=== PATIENT | female | born 2005 | race Caucasian/White ===

== ENCOUNTER 2023-07-29 08:52 | Emergency (ER) | payer BC, SELFPAY ==
[2023-07-29 09:18] VITALS: BP 115/83; PULSE 97; RESP 18; TEMP 37.3; O2SAT 100; BMI 29.2
--- NOTE | 2023-07-29 09:26 | CRLHL7_ITS ---
For Patients: As a result of the Cures Act, medical imaging exams and procedure reports are released immediately into your electronic medical record. You may view this report before your referring provider. If you have questions, please contact your health care provider. Indication: Trauma. Swelling. Technique: Three views Comparison: None Findings: Mild anterior periarticular soft tissue swelling. No fracture or dislocation. Impression: Mild anterior periarticular soft tissue swelling. Dictated by Alfred Carlson MD @ 07/29/2023 10:26:40 AM (Electronically Signed)
--- NOTE | 2023-07-29 10:42 | ED_ITS ---
HPI - General Adult General Time Seen by Provider: 10:42 Date Seen: 07/29/23 Chief complaint: Extremity Pain/Injury, Lower Stated complaint: left foot injury Time Seen by Provider: 07/29/23 10:41 History of Present Illness HPI narrative: This is a pleasant generally healthy 17-year-old female who presents to the ER today with her boyfriend for evaluation of a left ankle injury. She was letting out her dog this morning when she accidentally slipped and fell. She had an inversion/twisting injury to her left ankle. She has had pain in left ankle and has developed swelling and bruising there. She has been able to bear weight, with discomfort. Because of the amount of pain and swelling she came to the ER see for ankle was broken. No pain in her heel. No pain in her calf for in her proximal tibia or fibula. No other injury in the fall. Related Data Home Medications Medication Instructions Recorded Confirmed sertraline 50 mg tablet 50 mg PO DAILY 07/29/23 07/29/23 Allergies Allergy/AdvReac Type Severity Reaction Status Date / Time No Known Drug Allergies Allergy Verified 07/29/23 09:18 Exam Narrative: Exam Narrative: Constitutional: Appears well-developed and well-nourished. Alert. Conversant. Non toxic. HENT: Head: Atraumatic. Nose: Nose normal. Mouth/Throat: Oral mucosa is clear and moist. no trismus. Pharynx normal. Tonsils symmetric. No tonsillar enlargement, erythema, or exudate. Eyes: Conjunctivae normal. EOM normal. Pupils equal, round, and reactive to light. No scleral icterus. Neck: Normal range of motion. Neck supple. No tracheal deviation present. Cardiovascular: Normal rate, regular rhythm. Symmetric posterior tibial and dorsalis pedis artery pulses . Normal brisk distal capillary refill. Pulmonary/Chest: Effort normal. No stridor. No respiratory distress. Musculoskeletal: RUE: Normal range of motion. No tenderness. No deformity LUE: Normal range of motion. No tenderness. No deformity RLE: Normal range of motion. No edema. No tenderness. No deformity LLE: Normal range of motion in her hip, knee. Ankle range of motion limited by pain but she has some limited flexion extension. Knee: Normal inspection. No tenderness over the proximal tibia or fibula. Tibial spine nontender. Calf and gastrocnemius nontender. Ankle: There is swelling and ecchymosis over the anterolateral ankle just anterior to the bony malleolus. Mild tenderness over the anterior malleolus. No crepitus. No deformity. Medial malleolus nontender. Foot: There is swelling and ecchymosis just anterior to the left ankle lateral malleolus over the left midfoot. No tenderness of the calcaneus, base of the 5th metatarsal, midportion midfoot, arch, and no tenderness over the toes/forefoot.. Neurological: Alert and oriented to person, place, and time. Normal strength. CN II-VII intact. No sensory deficit. GCS eye subscore is 4. GCS verbal subscore is 5. GCS motor subscore is 6. Normal coordination Skin: Skin is warm and dry. No rash noted. No pallor. Normal capillary refill. Psychiatric: Normal mood. Normal affect. Const: Vital Signs, click to edit/add: Vital Signs - 24 hr 07/29/23 09:18 Temperature 99.2 F Pulse Rate [Right Pulse Oximeter] 97 Respiratory Rate 18 Blood Pressure [Ri ght Upper Arm] 115/83 Pulse Oximetry 100 Oxygen Delivery Me thod Room Air Course Vital Signs Vital signs: Initial Vital Signs Temperature 99.2 F 07/29/23 09:18 Temperature Source Temporal Artery Scan 07/29/23 09:18 Pulse Rate 97 07/29/23 09:18 Respiratory Rate 18 07/29/23 09:18 Blood Pressure 115/83 07/29/23 09:18 Blood Pressure Mean 93 07/29/23 09:18 Blood Pressure Position Sitting 07/29/23 09:18 Pulse Oximetry 100 07/29/23 09:18 Oxygen Delivery Method Room Air 07/29/23 09:18 Vital Signs Temperature 99.2 F 07/29/23 09:18 Pulse Rate 97 07/29/23 09:18 Respiratory Rate 18 07/29/23 09:18 Blood Pressure 115/83 07/29/23 09:18 Pulse Oximetry 100 07/29/23 09:18 Oxygen Delivery Method Room Air 07/29/23 09:18 Temperature 99.2 F 07/29/23 09:18 Pulse Rate 97 07/29/23 09:18 Respiratory Rate 18 07/29/23 09:18 Blood Pressure 115/83 07/29/23 09:18 Pulse Oximetry 100 07/29/23 09:18 Oxygen Delivery Method Room Air 07/29/23 09:18 Medical Decision Making MDM Narrative Medical decision making narrative: This patient presents for evaluation of left ankle pain. Signs and symptoms are consistent with an ankle sprain. There are no signs of fracture on radiograph. The patients neurovascular status is normal. Knee exam is normal. I don't think this is a Maisonneuve injury or a intraosseous ligament injury based on the location of tenderness. A head to toe trauma exam is otherwise negative; the likelihood of other serious sequelae of trauma (spine, head, chest, abdomen, other extremities, pelvis) is low. Plan is for protected weightbearing, RICE treatment with ice 15-20 minutes every 3 hours, and an bracing. Patient will advance weightbearing and follow-up in 2- 4 days. They will begin gentle ROM exercises. Precautions for return reviewed and questions answered. Imaging Data XR ankle: Attestation: I have reviewed the pertinent imaging results. Radiologist's impression: Impression: Mild anterior periarticular soft tissue swelling. Discharge Plan Discharge Clinical Impression: Ankle sprain and strain Patient Disposition: Home, Self-Care Condition: Stable Instructions: Ankle Sprain (ED) Additional Instructions: As we discussed, your x-rays look good today. Nothing broken. We suspect this is probably an injury to the ligaments on the outside of your left ankle. Please try to keep her ankle elevated when your sitting down to reduce swelling. Use ice for 20 minutes every 3-4 hours to reduce swelling. Use Tylenol or ibuprofen if needed for pain. Wear this splint on your ankle when her up and around for the next few days. If her ankle is not dramatically improved within 7-10 days, please recheck with orthopedics. Call the [facility] at [phone] to make an appointment. If you have any concerns especially worsening pain, increasing swelling, numbness or tingling in your foot, or any other problems, come back to the ER right away to be rechecked. Prescriptions: No Action sertraline 50 mg tablet 50 mg PO DAILY Follow Up/Referrals: Kar Byrne MD [Primary Care Provider] - Stand Alone Forms: ICEdot Info Instructions
== END 2023-07-29 11:27 | disposition home or self-care (01) ==
LOC: ED 11:18
PROVIDERS: Emergency Provider Emergency Medicine; PCP Pediatrics
DX: S93.402A Sprain of unspecified ligament of left ankle, initial encounter (principal); W01.0XXA Fall on same level from slipping, tripping and stumbling without subsequent striking against object, initial encounter
CPT/HCPCS: 29515; 73610; 99283

== ENCOUNTER 2025-04-07 18:18 | Outpatient (CLI) | payer SELFPAY ==
[2025-04-14 14:06] LABS: Pap Test Reviewed by Path Done
== END 2025-04-07 18:19 | disposition home or self-care (01) ==
LOC: NFLDREF 18:18
PROVIDERS: PCP Registered Nurse; Visit Provider Registered Nurse
DX: Z12.4 Encounter for screening for malignant neoplasm of cervix (principal)
CPT/HCPCS: 87624; 87625; 88141; 88142

== ENCOUNTER 2025-08-19 02:23 | Emergency (ER) | payer OTHER, SELFPAY ==
--- OUTSIDE RECORDS SUMMARY | 2025-08-19 02:25 | XMS_ITS | Clinical Summary ---
Author Organization [facility] Address [address] [place] [id number] Care Team Providers Care Filter Washer Name Role Phone Elsewhere, Pcp Primary Care Provider Unavailabl e Source Comments Patient records contain information from all sites at [facility]. For routine questions regarding patient records, call [phone] during business hours, M-F 8:00 AM - 5:00 PM Central Time. Record requests for emergency care only can be directed to [phone] at any time.[facility] Allergies No known active allergies Medications benzonatate (Tessalon) 200 mg capsule Take 1 capsule (200 mg total) by mouth 3 (three) times a day as needed for cough. 20 capsule 10/28/2024 Active Active Problems No known active problems Immunizations Immunization Administration Dates Next Due 9vHPV 06/01/2021,06/06/2018 DTaP / Hep B / IPV (Pediarix) 04/14/2004, 004,2003 DTaP / Hib 01/13/2005 DTaP-IPV 05/21/2009 HepA Pediatric/Adolescent 05/21/2009,03/19/2008 Hib (PRP-OMP) (PedvaxHIB) 04/14/2004 Hib (PRP-T) (ACTHIB, HIBERIX) 02/16/2004, 004 Influenza, Unspecified 08/19/2004,07/18/2004 MCV4 (Menveo) 06/01/2021,04/27/2016 MMR 05/21/2009,10/25/2004 PCV7 (discontinued) 01/13/2005,07/18/2004,2003,2003 Tdap 04/27/2016 LARS 05/21/2009,10/25/2004 Social History Tobacco Use Types Packs/Day Years Used Date Smoking Tobacco: Never Smokeless Tobacco: Never Tobacco Cessation:Counseling Given: Yes Humiliation, Afraid, Rape, and Kick questionnair e Answer Date Recorded Within the last year, have y ou been afraid of your partner or ex-partner? No 01/12/2022 Within the last year, have y ou been humiliated or emotionally abused in other ways by your partner or ex-partner? No Within the last year, have y ou been kicked, hit, slapped, or otherwise physically hurt by your partner or ex-partner? No 01/12/2022 Within the last year, have y ou been raped or forced to have any kind of sexual activity by your partner or ex-partner? No 01/12/2022 Hunger Vital Sign Answer Date Recorded Within the past 12 months, y ou worried that your food would run out before you got the money to buy more. Never true 01/13/20 Within the past 12 months, t he food you bought just didn't last and you didn't have money to get more. Never true 01/12/2022 PRAPARE - Transportation Answer Date Re corded In the past 12 months, has l ack of transportation kept you from medical appointments or from getting medications? No 12/15 In the past 12 months, has l ack of transportation kept you from meetings, work, or from getting things needed for daily living? No 01/12/2022 Housing Stability Vital Sign Answer Mj e Recorded In the last 12 months, was t here a time when you were not able to pay the mortgage or rent on time? Patient refused 01/13/20 In the last 12 months, how many places have you lived? 1 01/12/2022 In the last 12 months, was t here a time when you did not have a steady place to sleep or slept in a usp (including now)? No 01/12/2022 Comments Unknown Sex and Gender Information Value Date Recorded Sex Assigned at Female 01/12/2022 7:26 PM CDT Legal Sex Female 7:10 AM DIRECTOR OF EMERGENCY NURSING Gender Identity Female 01/12/2022 7:26 PM CDT Sexual Orientation Straight 01/12/2022 7: 26 PM CDT Last Filed Vital Signs Vital Sign Reading Time Taken Comments Blood Pressure 120/76 10/28/2024 11:13 AM DIRECTOR OF EMERGENCY NURSING Pulse 120 10/28/2024 11:17 AM DIRECTOR OF EMERGENCY NURSING Temperature 37.6 C (99.7 F) 10/28/2024 11:13 AM DIRECTOR OF EMERGENCY NURSING Respiratory Rate 18 10/28/2024 11:13 AM DIRECTOR OF EMERGENCY NURSING Oxygen Saturation 95% 10/28/2024 11:13 AM DIRECTOR OF EMERGENCY NURSING Inhaled Oxygen Concentration - - Weight 83.2 kg (183 lb 6.4 oz) 10/28/2024 11:11 AM DIRECTOR OF EMERGENCY NURSING Height 162.6 cm (5' 4) 10/28/2024 11:11 AM DIRECTOR OF EMERGENCY NURSING Body Mass Index 31.48 10/28/2024 11:11 AM DIRECTOR OF EMERGENCY NURSING Plan of Treatment Health Maintenance Due Date Last Done Comments Cervical/Vaginal Cancer Screening 2003 Chlamydia and Gonorrhea Screening 2003 HIV Screening 2003 Hearing Screening during Well Child Visit 2003 Hepatitis C Screening 2003 TB Screening during Well Child Visit 2003 1 week Well Child Check-Up 2003 1 month Well Child Check-Up 2003 2 month Well Child Check-Up 2003 4 month Well Child Check-Up 01/14/2004 9 month Well Child Check-Up 06/15/2004 15 month Well Child Check-Up 12/13/2004 18 month Well Child Check-Up 03/15/2005 2 year Well Child Check-Up 09/14/2005 30 month Well Child Check-Up 03/15/2006 3 year Well Child Check-Up 09/14/2006 Well Child Check-Up Completed in Past Year 09/14/2006 5 year Well Child Check-Up 09/14/2008 6 year Well Child Check-Up 09/14/2009 7 year Well Child Check-Up 09/14/2010 8 year Well Child Check-Up 09/14/2011 10 year Well Child Check-Up 09/14/2013 12 year Well Child Check-Up 09/14/2015 13 year Well Child Check-Up 09/14/2016 14 year Well Child Check-Up 09/14/2017 15 year Well Child Check-Up 09/14/2018 17 year Well Child Check-Up 09/14/2020 18 year Well Child Check-Up 09/14/2021 19 year Well Child Check-Up 09/14/2022 20 year Well Child Check-Up 09/14/2023 21 year Well Child Check-Up 09/14/2024 Well Child Check-Up ([facility]) 09/14/2024 Depression Screening (Annual PHQ-2) 2024 COVID-19 Vaccine ( season) 2025 07/04/2022, 06/13/2022 Influenza Vaccine (#1) 2025 , 07/26/2022, 08/19/2004, Additional history exists DTaP,Tdap,and Td Vaccines (8 - Td or Tdap) 12/12/2032 12/12/2022, 04/27/2016, 05/21/2009, Additional history exists Hepatitis B Vaccines Completed 04/14/2004, 02/16/2004, 2003 Pneumococcal vaccine (0-49 years) Aged Out 01/13/2005, 07/18/2004, 02/16/2004, Additional history exists No longer eligible based on patient's age to complete this topic IPV Vaccines Completed 05/21/2009, 10/2003, 02/16/2004, Additional history exists Varicella Vaccines Completed 05/21/2009, 10/25/2004 HPV Vaccines Completed 06/01/2021, 06/06/2018 Meningococcal Vaccine Completed 06/01/2021, 016 Insurance [facility] Care Teams Filter Washer Relationship Specialty Start Date End Date Elsewhere, Pcp PCP - General Internal Medicine 01/16/22
--- OUTSIDE RECORDS SUMMARY | 2025-08-19 02:25 | XMS_ITS | Clinical Summary ---
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 45 g Active sertraline (ZOLOFT) 25 mg tablet Take 25 mg by mouth once daily. Active Active Problems Problem Noted Date Diagnosed Date Vaginal delivery 03/04/2023 care and examination of lactating mot her 03/04/2023 Supervision of normal first teen in third trimester 03/03/2023 Anxiety during 03/03/2023 Immunizations Immunization Administration Dates Next Due COVID-19 vaccine (VeducaBio NTech 30mcg/0.3mL) PF, MDV 07/04/2022,06/13/2022 DTaP-HIB (TriHIBIT) 01/13/2005 [id number] (Pediarix) 04/14/2004,02/16/2004,0 2003 DTaP-IPV (Kinrix) 05/21/2009 HIB PRP-OMP (PedvaxHIB) 04/14/2004 HIB PRP-T (ActHIB,Hiberix) 02/16/2004,2003 HPV 9 (Gardasil 9) 06/01/2021,06/06/2018 Hepatitis A (Peds) 05/21/2009,03/19/2008 Influenza Virus, Unspecified 08/19/2004, 08/19/2004,07/18/2004,07/18 Influenza, IIV4 07/26/2022 MENINGOCOCCAL VACCINE 2 VIAL [id number] (MENVEO) 06/01/2021,04/27/2016 MMR 05/21/2009,10/25/2004 Pneumococcal conj 7-Valent (Prevnar 7) 0 01/13/2005,07/18/2004,02/16/2004,12/16 Tdap 12/12/2022,04/27/2016 Varicella Vaccine 05/21/2009,10/25/2004 Social History Tobacco Use Types Packs/Day Years Used Date Smoking Tobacco: Never Smokeless Tobacco: Never Tobacco Cessation:Counseling Given: Not Answered Alcohol Use Standard Drinks/Week Comments Never 0 (1 standard drink = 0.6 oz pur e alcohol) Social Connections Answer Date Recorded Frequency of Communication with Friends and Fami ly Not on file 03/03/2023 Comments No Sex and Gender Information Value Date Recorded Sex Assigned at Not on file Legal Sex Female 6:31 AM MANAGER TRAINEE Gender Identity Not on file Sexual Orientation Not on file Obstetrics History Para Term AB IAB SAB Ectopic Multiple Livin g Live Births 1 1 1 0 1 1 Date Outcome GA Total Labor Labor/2nd/3rd Weight Sex Type Anes PTL Keri A1 A5 Name Clin 2022 Term 40w 3d 11h 58m 11h 14m/0h 41m/0h 03m 3.69 kg (8 lb 2.2 oz) M Vag-S pont Epidur al Livin g 9 9 [id number] Potter,BB LINA orona, Alfred Stephenson MD Complications:None Delivery Location:Hospital ( [facility]) Last Filed Vital Signs Vital Sign Reading Time Taken Comments Blood Pressure 115/64 03/05/2023 8:35 AM CDT Pulse 78 03/05/2023 8:35 AM CDT Temperature 36.6 C (97.9 F) 03/05/2023 8:35 AM CDT Respiratory Rate 16 03/05/2023 8:35 AM CDT Oxygen Saturation 98% 03/05/2023 8:35 AM CDT Inhaled Oxygen Concentration - - Weight 86.2 kg (190 lb) 03/03/2023 6:00 PM CDT Height 162.6 cm (5' 4) 03/03/2023 6:00 PM CDT Body Mass Index 32.61 03/03/2023 6:00 PM CDT Plan of Treatment Health Maintenance Due Date Last Done Comments Depression screening for age 12+ 2015 Chlamydia for age 16-24 2019 BMI (ht and wt on same day) for age 18+ 2021 Hepatitis C screening for age 18-79 2021 Pap test for age 21-65 2024 Influenza Vaccine (#1) 2025 , 08/19/2004, 08/19/2004, Additional history exists Tetanus booster 12/12/2032 12/12/2022, 04/27/2016 RSV vaccine for adults or (1 - 1-dose 75+ series) 2078 Hepatitis B series for 19+ Completed 04/14, 02/16/2004, 2003 Pneumococcal series for age 6-49 Aged Out 01/13/2005, 07/18/2004, 02/16/2004, Additional history exists No longer eligible based on patient's age to complete this topic HPV series for age 9-45 Completed 06/01/2021, 06/06 Meningococcal series for age 11-21 Completed 06/01/2021, 04/27/2016 HIV for age 15-65 Completed 07/26/2022 Procedures Procedure Name Priority Date/Time Associated Diagnosis Comments HIV EXTERNAL Routine 07/26/2022 from Last 3 Months or Most Recently Relevant to Health Maintenance Results * HIV EXTERNAL (07/26/2022) EXTERNAL HIV Negative [facility] Blood BLOOD SPECIMEN / Unknown us Dee Campos MD LABORATORY Final Res ult [facility] [address] [place], [place] [id number] from Last 3 Months or Most Recently Relevant to Health Maintenance Insurance [facility] [place] Advance Directives * Full Code (Latest Code Status on File) Date Activated Date Inactivated Comments 03/04/2023 3:41 AM 03/05/2023 2:59 PM Question Answer Comments Code Status Discussion: Reviewed Preferences Care Teams Continuous Mining Machine Coal Miner Relationship Specialty Start Date End Date Pcp, No . PCP - General 11/24/12
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
[2025-08-19 02:30] VITALS: BP 144/106; PULSE 115; RESP 20; TEMP 36.8; O2SAT 99; BMI 30.9
--- NOTE | 2025-08-19 02:39 | ED.CHESTPAIN ---
HPI - Chest Pain General Time Seen by Provider: 02:39 Date Seen: 08/19/25 Chief Complaint: Chest Pain Stated Complaint: chest pain Time Seen by Provider: 08/19/25 02:38 Source: patient Mode of arrival: ambulatory History of Present Illness HPI narrative: Jordyn is a 19-year-old female with no significant past medical history presents the emergency department for evaluation chest pain. Patient states that a few hours prior to arrival she developed sudden onset mid lower chest pain/epigastric pain. Patient describes the pain as a constant sharp pain that woke her from sleep and has been constant since onset. Patient reports some relief when lying down flat. Reports some radiation to her back. Patient denies any fever, chills, cough or cold-like symptoms. Patient denies any nausea, vomiting, diarrhea, constipation, dysuria. Denies any lower extremity edema or calf tenderness. Patient denies any hormonal use/ control pills. No history of similar symptoms in the past. Related Data Previous Rx's ?Medication ?Instructions ?Recorded escitalopram oxalate 10 mg tablet 10 mg PO ONCE #30 tabs 06/17/25 (Lexapro) Allergies Allergy/AdvReac Type Severity Reaction Status Date / Time No Known Drug Allergies Allergy Verified 08/19/25 02:34 PFSH PFSH Surgical History Vaginal delivery ?O80 - Encounter for full-term uncomplicated delivery (ICD-10) Family History Grandfather Heart disease Father FH: mental illness Social History (Updated 06/17/25 @ 13:33 by Kristin Moody ~ [facility]) Narrative: Single, one daughter, nonsmoker What is your current living situation?: I presently have a place to live Problems where you live: no known problems In the past 12 months, utilities in danger of being shut off: no In past 12 months, lack of transportation kept you from medical appts, meetings, work, or getting things needed for daily living: no In the past 12 mos, have been you worried that your food would run out before you had money to buy more?: never true In the past 12 mos, the food you bought just didn't last and you didn't have money to buy more?: never true Smoking Status: Never smoker Do you use any of these nicotine containing products: None Second hand tobacco smoke exposure: No How often do you have a drink containing alcohol: never AUDIT-C Alcohol total score: 0 Non-prescribed substance use: denies use How often does anyone, including family, friends and others, physically hurt you: never How often does anyone, including family, friends and others, insult or talk down to you: never How often does anyone, including family, friends and others, threaten you with harm: never How often does anyone, including family, friends and others, scream or curse at you: never Exam Const Vital Signs, click to edit/add: Vital Signs - 24 hr 08/19/25 02:30 08/19/25 03:27 08/19/25 03:43 Temperature 98.2 F Pulse Rate [Right Pulse Oximeter] 115 H 96 87 Respiratory Rate 20 16 16 Blood Pressure [Right Upper Arm] 144/106 H 126/78 Pulse Oximetry 99 100 99 Oxygen Delivery Method Room Air Room Air Room Air Course Vital Signs Vital signs: Initial Vital Signs Respiratory Effort Normal, Spontaneous, Non-Labored 08/19/25 02:23 Respiratory Depth Normal 08/19/25 02:23 Respiratory Pattern Normal 08/19/25 02:23 Vital Signs Temperature 98.2 F 08/19/25 02:30 Pulse Rate 115 H 08/19/25 02:30 Respiratory Rate 20 08/19/25 02:30 Blood Pressure 144/106 H 08/19/25 02:30 Pulse Oximetry 99 08/19/25 02:30 Oxygen Delivery Method Room Air 08/19/25 02:30 Temperature 98.2 F 08/19/25 02:30 Pulse Rate 87 08/19/25 03:43 Respiratory Rate 16 08/19/25 03:43 Blood Pressure 126/78 08/19/25 03:43 Pulse Oximetry 99 08/19/25 03:43 Oxygen Delivery Method Room Air 08/19/25 03:43 Medications Administered Medications: Discontinued Medications Generic Name Dose Route Start Last Admin Trade Name Freq PRN Reason Stop Dose Admin Lidocaine/Aluminum/Magnesium/Simeth 30 ml 08/19/25 02:57 08/19/25 02:45 Gi Cocktail (Visc Lido/Antacid) 30 Ml PO 08/19/25 02:58 30 ml ONCE ONE Administration MDM - Chest Pain MDM Narrative Medical decision making narrative: Jordyn is a 19-year-old female with no significant past medical history presents the emergency department for evaluation chest pain. Upon arrival patient is ill but nontoxic appearing, afebrile, in distress secondary to pain. Patient hypertensive, tachycardia probable arrival. Differential diagnosis includes but is not limited to ACS versus PE versus pneumonia versus pneumothorax versus pancreatitis versus gastritis versus gastroenteritis versus esophageal spasm versus acid reflux versus cholecystitis versus biliary colic among others. Upon arrival patient declined anything for symptoms/pain. I reviewed EKG which demonstrates sinus tachycardia with a ventricular rate of 123 beats per minute right axis deviation, nonspecific ST and T-wave abnormality, with a QTC of 449, no acute ischemic change. No prior EKG to compare to. Comprehensive labs remarkable for mild leukocytosis with white blood cell count 12.5, hemoglobin 13.5, potassium slightly low at 3.2 but no other acute metabolic electrolyte abnormality, no transaminitis, normal lipase, negative troponin, negative test. D-dimer negative. Patient with improvement of tachycardia, troponin and D-dimer reassuring low suspicious for ACS, PE. I personally reviewed interpreted chest x-ray which demonstrates no cardiomegaly, no focal infiltrate, pleural effusion, pneumothorax. I discussed results with patient. No evidence of significant infection. Patient reports she is feeling better, abdomen remains soft, no tenderness to palpation in epigastric or right upper quadrant. Considered right upper quadrant ultrasound however with no fever, no nausea vomiting, no tenderness to palpation in abdomen, will hold off at this time. Patient feels comfortable and like to go home with continued supportive care and close outpatient follow-up. Strict return precautions discussed if any recurrent or worsening symptoms, chest pain, shortness of breath, high fever, abdominal pain, persistent vomiting. Patient and understand agrees the plan. Medical Records Data Attestation: I reviewed the patient's medical records. Lab Data Attestation: I reviewed the patient's lab results. Labs: Lab Results 08/19/25 Range/Units 02:40 WBC 12.59 H (4.50-11.00) K/uL RBC 4.68 (4.00-5.20) m/uL Hgb 13.5 (12.0-16.0) gm/dL Hct 39.9 (33.0-51.0) % MCV 85 (80-100) fL MCH 29 (26-34) pg MCHC 34 (32-36) gm/dL RDW Coeff of Gomez 13.5 (11.5-15.5) % Plt Count 238 (140-440) K/uL Neut % (Auto) 84.2 H (42.0-72.0) % Lymph % (Auto) 8.8 L (20-44) % [place] % (Auto) 6.1 (0.0-11.0) % Eos % (Auto) 0.6 (0.0-7.0) % Baso % (Auto) 0.2 (0.0-3.0) % Neut # (Auto) 10.60 H (1.7-7.0) K/uL Lymph # (Auto) 1.10 (0.90-2.90) K/uL [place] # (Auto) 0.80 (0.00-0.90) K/UL Eos # (Auto) 0.10 (0.00-0.50) K/uL Baso # (Auto) 0.00 (0.00-0.30) K/uL Abs Immat Gran (auto) 0.00 (0.00-0.30) K/uL Imm/Tot Granulo (auto) 0.1 % D-Dimer Quant (PE/DVT) < 0.27 (0.00-0.50) ug/ml Sodium 139 (135-149) mmol/L Potassium 3.2 L (3.6-5.1) mmol/L Chloride 107 (96-114) mmol/L Carbon Dioxide 21 (20-32) mmol/L Anion Gap 11 (7-15) mEq/L BUN 10 (5-24) mg/dL Creatinine 0.7 (0.5-1.5) mg/dL Estimated Creat Clear 109.78 Estimated GFR 126 ml/min Glucose 105 (60-115) mg/dL Calcium 9.4 (8.4-10.6) mg/dL Total Bilirubin 0.5 (0.1-1.5) mg/dL AST 23 (12-35) U/L ALT 16 (4-35) U/L Alkaline Phosphatase 85 (40-150) U/L Troponin I < 0.01 (0.01-0.04) ng/mL Total Protein 7.8 (6.0-8.3) g/dL Albumin 4.2 (3.3-5.0) g/dL Lipase 70 (23-300) U/L HCG, Qual Negative (Negative) Imaging Data Chest x-ray: Attestation: I have reviewed the pertinent imaging results. Radiologist's impression: INDICATION: Chest pain. TECHNIQUE: Chest 2 views. COMPARISON: None. FINDINGS: Cardiovascular and mediastinum: Cardiomediastinal silhouette is within normal limits. Lungs and pleural spaces: Lungs are clear. No sign of infiltrate or mass. No sign of pleural effusion. No pneumothorax. Bones and soft tissues: No significant findings. IMPRESSION: No acute or significant findings. Discharge Plan Discharge Clinical Impression: Chest pain Patient Disposition: Home, Self-Care Condition: Improved Instructions: Chest Pain (ED) Additional Instructions: Please follow-up with your primary care provider in the next 3-5 days for further evaluation and follow-up. Please call to schedule appointment. Please rest, drink plenty of fluids. Please eat a bland/soft diet and slowly advance as tolerated. Please return to the emergency department if you develop worsening chest pain, shortness of breath, high fever, abdominal pain, persistent vomiting, worsening symptoms. It was a pleasure taking care of you today. We hope you feel better soon. Prescriptions: No Action escitalopram oxalate [Lexapro] 10 mg tablet 10 mg PO ONCE Qty: 30 3RF Follow Up/Referrals: Moris Poe MD [Primary Care Provider, Internal Medicine] Stand Alone Forms: [employer] Info Instructions
[2025-08-19] MEDS: GI COCKTAIL (VISC LIDO/ANTACID) 30 ML PO (02:45)
[2025-08-19 02:48] LABS: Hematocrit* 39.9 % (33.0-51.0); Hemoglobin* 13.5 gm/dL (12.0-16.0); Immature Granulocytes Pct Auto 0.1 %; Mean Corpuscular HGB Conc 34 gm/dL (32-36); Mean Corpuscular Hemoglobin 29 pg (26-34); Mean Corpuscular Volume 85 fL (80-100); RDW Coefficient of Variation % 13.5 % (11.5-15.5); Red Blood Count* 4.68 m/uL (4.00-5.20); White Blood Count* 12.59 K/uL (4.50-11.00)
[2025-08-19 02:51] LABS: Immature Granulocytes Abs Auto 0.00 K/uL (0.00-0.30); Lymphocytes Absolute Auto 1.10 K/uL (0.90-2.90); Slide Review Reflex No
[2025-08-19 03:01] LABS: Albumin* 4.2 g/dL (3.3-5.0); Chloride* 107 mmol/L (96-114); Potassium* 3.2 mmol/L (3.6-5.1); Sodium* 139 mmol/L (135-149)
[2025-08-19 03:04] LABS: Alanine Aminotransferase* 16 U/L (4-35); Alkaline Phosphatase* 85 U/L (40-150); Anion Gap 11 mEq/L (7-15); Aspartate Amino Transferase* 23 U/L (12-35); Bilirubin Total* 0.5 mg/dL (0.1-1.5); Blood Urea Nitrogen* 10 mg/dL (5-24); Carbon Dioxide* 21 mmol/L (20-32); Creatinine* 0.7 mg/dL (0.5-1.5); Est. Creatinine Clearance* 109.78; Estimated Glomerular Filt Rate 126 ml/min; Total Protein* 7.8 g/dL (6.0-8.3)
[2025-08-19 03:05] LABS: Calcium* 9.4 mg/dL (8.4-10.6); Glucose* 105 mg/dL (60-115)
[2025-08-19 03:25] LABS: HCG Qualitative Serum* Negative (Negative)
[2025-08-19 03:26] LABS: D Dimer Quantitative* < 0.27 ug/ml (0.00-0.50)
[2025-08-19 03:27] VITALS: PULSE 96; RESP 16; O2SAT 100
--- NOTE | 2025-08-19 03:27 | CRLHL7_ITS ---
For Patients: As a result of the Cures Act, medical imaging exams and procedure reports are released immediately into your electronic medical record. You may view this report before your referring provider. If you have questions, please contact your health care provider. INDICATION: Chest pain. TECHNIQUE: Chest 2 views. COMPARISON: None. FINDINGS: Cardiovascular and mediastinum: Cardiomediastinal silhouette is within normal limits. Lungs and pleural spaces: Lungs are clear. No sign of infiltrate or mass. No sign of pleural effusion. No pneumothorax. Bones and soft tissues: No significant findings. IMPRESSION: No acute or significant findings. Dictated by Robi Lance MD @ 08/19/2025 3:59:39 AM (Electronically Signed)
[2025-08-19 03:43] VITALS: BP 126/78; PULSE 87; RESP 16; O2SAT 99
[2025-08-19 04:00] VITALS: BP 124/71; PULSE 81; RESP 16; TEMP 36.8; O2SAT 99
== END 2025-08-19 04:43 | disposition home or self-care (01) ==
PROVIDERS: Emergency Provider Emergency Medicine; PCP Internal Medicine
DX: R07.9 Chest pain, unspecified (principal)
CPT/HCPCS: 36415; 71046; 80053; 83690; 84484; 84703; 85025; 85379; 93005; 99284; 99285; A9270

== ENCOUNTER 2025-09-16 08:11 | Outpatient (CLI) | payer OTHER, SELFPAY | END 2025-09-16 08:12 | disposition home or self-care (01) | PROVIDERS: PCP Internal Medicine; Visit Provider Registered Nurse | DX: R53.83 Other fatigue (principal) | CPT/HCPCS: 82306; 84443 ==

== ENCOUNTER 2025-10-14 14:31 | Outpatient (CLI) | payer OTHER, SELFPAY ==
--- NOTE | 2025-10-14 14:45 | CRLHL7_ITS ---
For Patients: As a result of the Cures Act, medical imaging exams and procedure reports are released immediately into your electronic medical record. You may view this report before your referring provider. If you have questions, please contact your health care provider. OBSTETRICAL ULTRASOUND TRANSVAGINAL CLINICAL INDICATION: Dating and viability. LMP: 08/17/2025 DARION by LMP: 05/24/2026 Gestational age: 8 weeks 2 days PREVIOUS ULTRASOUND: No TECHNIQUE: Real-time santacruz-scale imaging of the fetus was performed transvaginal. Transvaginal imaging was performed for better visualization of the endometrium and ovaries. FINDINGS: CRL: 1.0 cm, 7 weeks 0 days; DARION 06/02/2026 heart rate: 133 BPM Gestational sac: 2.3 cm, appears within normal limits Yolk sac: 3.2 mm, appears within normal limits Right ovary: 4.1 x 2.3 x 2.8 cm, CL Left ovary: 3.4 x 2.0 x 1.9 cm IMPRESSION: 1. Single living intrauterine measures 7 weeks 0 days with sonographic due date of 06/02/2026. 2. Subchorionic hemorrhage measures 3 x 4 x 8 mm. HAYDER MOLINA M.D. Diagnostic Radiologist [email or web address] MICHELE/shital Transcribed: 8:[address]/Dictated by: Hayder Molina MD @ 10/15/2025 7:49:00 PM (Electronically Signed)
== END 2025-10-14 14:32 | disposition home or self-care (01) ==
LOC: US 14:31
PROVIDERS: PCP Internal Medicine; Visit Provider Advanced Practice Midwife
DX: O20.9 Hemorrhage in early pregnancy, unspecified (principal)
CPT/HCPCS: 76817

== ENCOUNTER 2025-10-14 15:25 | Outpatient (CLI) | payer OTHER, SELFPAY ==
[2025-10-14 20:22] LABS: Chlamydia DNA Amplified* NOT DETECTED (No Detected); GC DNA Amplified* NOT DETECTED (No Detected)
== END 2025-10-14 15:26 | disposition home or self-care (01) ==
PROVIDERS: PCP Internal Medicine; Visit Provider Registered Nurse
DX: Z34.91 Encounter for supervision of normal pregnancy, unspecified, first trimester (principal)
CPT/HCPCS: 83020; 83021; 85660; 86703; 86704; 86706; 86762; 86780; 86787; 86803; 86850; 86900; 86901; 87086; 87340; 87491; 87591